=== PATIENT | male | born 1990 | race African-American/Black ===

== ENCOUNTER 2019-06-30 00:30 | Emergency (ER) | payer BC ==
[~2019-06-30] VITALS: Ht 170.2 cm; Wt 68.0 kg
[2019-06-30 00:36] VITALS: BP 107/66
[2019-06-30] MEDS ORDERED: TRAM50TA PO (01:12)
--- NOTE | 2019-06-30 01:55 | PHYS DOC ---
Past Medical History Past Medical History: No Pertinent History Past Surgical History: No Surgical History Alcohol Use: None Drug Use: Marijuana Adult General Chief Complaint Chief Complaint: SHOULDER INJURY HPI HPI Patient is a 29 year old R handed -[place] male presents with left shoulder pain intermittent times one week. Pain is worse with lifting and pulling and repetitive left arm use. 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 Patient left work earlier this evening due to shoulder pain. Denies direct trauma to the area. Patient is taking ibuprofen and Tylenol with limited relief. He is not been evaluated by his PCP or work comp physician for his current symptoms. [] Review of Systems Review of Systems Review of symptoms as per history of present illness. All other review symptoms are negative All other systems were reviewed and found to be within normal limits, except as documented in this note. Allergies Allergies Allergies Coded Allergies Type Severity Reaction Last Updated Verified No Known Drug Allergies 11/15/17 No Physical Exam Physical Exam Constitutional: Well developed, well nourished, no acute distress, non-toxic appearance. [] HENT: Normocephalic, atraumatic, bilateral external ears normal, oropharynx moist, no oral exudates, nose normal. [] Extremities: Left posterior deltoid pain/tenderness to palpation and with active range of motion and resistance [] Neurologic: Alert and oriented X 3, normal motor function, normal sensory function, no focal deficits noted. [] Psychologic: Affect normal, judgement normal, mood normal. [] Current Patient Data Vital Signs Vital Signs Date Time Temp Pulse Resp B/P (MAP) Pulse Ox O2 Delivery O2 Flow Rate FiO2 06/30/19 00:36 97.7 68 18 107/66 (80) 100 Room Air 97.7 EKG EKG [] Radiology/Procedures Radiology/Procedures [] Course & Med Decision Making Course & Med Decision Making Pertinent Labs and Imaging studies reviewed. (See chart for details) [Symptoms improved with treatment. Recommendations are for supportive care with the follow-up.] Dragon Disclaimer Dragon Disclaimer This electronic medical record was generated, in whole or in part, using a voice recognition dictation system. Departure Departure Impression: Primary Impression: Sprain of left shoulder Disposition: 01 HOME/RESIDENCE PRIOR TO ADM Condition: STABLE Patient Instructions: Shoulder Sprain Additional Instructions: Please take milligrams of ibuprofen for pain 3 times daily and tramadol as needed for additional relief. Limit left arm/shoulder use and follow-up your PCP or work comp physician in 5-7 days for reevaluation and additional workplace restrictions. Scripts Tramadol Hcl (TRAMADOL HCL) 50 Mg Tablet 50 MG PO Q6H PRN for PAIN for 3 Days, #15 TAB 0 Refills Prov: SLICK QUILES DO 06/30/19 SLICK QUILES DO Jun 30, 2019 01:55
== END 2019-06-30 01:18 | disposition home or self-care (01) ==
LOC: ER 00:30
DX: S43.402A Unspecified sprain of left shoulder joint, initial encounter (principal); F12.90 Cannabis use, unspecified, uncomplicated; X50.9XXA Other and unspecified overexertion or strenuous movements or postures, initial encounter; Y93.89 Activity, other specified; Y92.89 Other specified places as the place of occurrence of the external cause; Y99.8 Other external cause status
CPT/HCPCS: 99283